=== PATIENT | male | born 1970 | race Caucasian/White ===

== ENCOUNTER 2018-04-13 06:19 | Day surgery (SDC) | payer OTHER ==
[~2018-04-13] VITALS: Ht 188 cm; Wt 111.7 kg
[~2018-04-13 06:19] MED LIST: Aspir 8181 MG PO; BUPR75 PO; CLARITIN10 MG PO; CONTRAVE ER 8-1 EACH PO; FISH1000 PO; FLUO20 PO; HYDACE5 PO; IBUP800 PO; Mobic15 MG PO; NIAC500ER PO; PARO20 PO; PRED20; WARF10 PO; WARF5 PO; Zantac150 MG PO
[2018-04-13] MEDS ORDERED: ALBU90OI (07:16)
== END 2018-04-13 10:19 | disposition home or self-care (01) ==
LOC: ORSCSDS 06:19
PROVIDERS: Orthopaedic Surgery
PROC: 0RBK4ZZ Excision of Left Shoulder Joint, Percutaneous Endoscopic Approach (ICD-10-PCS; principal; 2018-04-13 07:30)
PROC: 0PBB4ZZ Excision of Left Clavicle, Percutaneous Endoscopic Approach (ICD-10-PCS; principal; 2018-04-13 07:30)
DX: M19.012 Primary osteoarthritis, left shoulder (principal); M75.42 Impingement syndrome of left shoulder; J45.909 Unspecified asthma, uncomplicated; E78.5 Hyperlipidemia, unspecified; R03.0 Elevated blood-pressure reading, without diagnosis of hypertension; Z86.718 Personal history of other venous thrombosis and embolism; Z79.82 Long term (current) use of aspirin; Z79.899 Other long term (current) drug therapy
CPT/HCPCS: J0171; J0690; J1100; J2250; J2405; J2765; J7120

== ENCOUNTER 2021-04-17 08:07 | Day surgery (SDC) | payer OTHER ==
[~2021-04-17] VITALS: Ht 188 cm; Wt 113.1 kg
[~2021-04-17 08:07] MED LIST changes: +ALBU90OI
== END 2021-04-17 10:29 | disposition home or self-care (01) ==
LOC: ORSCSDS 08:07
DX: M77.11 Lateral epicondylitis, right elbow (principal); Z86.718 Personal history of other venous thrombosis and embolism; J45.909 Unspecified asthma, uncomplicated; E78.5 Hyperlipidemia, unspecified; Z79.82 Long term (current) use of aspirin; Z79.899 Other long term (current) drug therapy
CPT/HCPCS: A9270; J0690; J1100; J2250; J2405; J2704; J3010

== ENCOUNTER 2022-05-17 14:09 | Day surgery (SDC) | payer OTHER ==
[~2022-05-17] VITALS: Ht 188 cm; Wt 108.7 kg
[2022-05-17] MEDS ORDERED: ADDERALL 10 MG10 MG (14:22)
--- NOTE | 2022-05-17 15:26 | NUR ---
05/17/22 1526 SARAH DEL ANGEL PT WAS SWEATING MILDLY DURING PROCEDURE; GIVEN COOL COMPRESS TO HEAD. AT DC PT STATED THAT HE FELT FINE AND WAS READY TO GO HOME.
== END 2022-05-17 15:20 | disposition home or self-care (01) ==
LOC: ORSCSDS 14:09
PROVIDERS: Anesthesiology
PROC: 3E0R33Z Introduction of Anti-inflammatory into Spinal Canal, Percutaneous Approach (ICD-10-PCS; principal; 2022-05-17 15:30)
DX: M51.16 Intervertebral disc disorders with radiculopathy, lumbar region (principal); J45.909 Unspecified asthma, uncomplicated; I10 Essential (primary) hypertension; E78.00 Pure hypercholesterolemia, unspecified; Z79.82 Long term (current) use of aspirin; Z79.899 Other long term (current) drug therapy
CPT/HCPCS: J1040

== ENCOUNTER 2022-06-03 08:36 | Day surgery (SDC) | payer OTHER ==
[~2022-06-03] VITALS: Ht 188 cm; Wt 110.3 kg
[~2022-06-03 08:36] MED LIST changes: +ADDERALL 10 MG10 MG
== END 2022-06-03 10:22 | disposition home or self-care (01) ==
LOC: ORSCSDS 08:36
PROVIDERS: Anesthesiology
PROC: 3E0R3BZ Introduction of Anesthetic Agent into Spinal Canal, Percutaneous Approach (ICD-10-PCS; principal; 2022-06-03 09:45)
PROC: 3E0R33Z Introduction of Anti-inflammatory into Spinal Canal, Percutaneous Approach (ICD-10-PCS; principal; 2022-06-03 09:45)
DX: M51.36 Other intervertebral disc degeneration, lumbar region (principal); M48.061 Spinal stenosis, lumbar region without neurogenic claudication; I10 Essential (primary) hypertension; E78.00 Pure hypercholesterolemia, unspecified; J45.909 Unspecified asthma, uncomplicated; Z79.899 Other long term (current) drug therapy; Z79.82 Long term (current) use of aspirin
CPT/HCPCS: J1040; J2001; J2704; J2710

== ENCOUNTER 2023-06-08 00:06 | Emergency (ER) | payer BC ==
[~2023-06-08] VITALS: Ht 188 cm; Wt 108.9 kg
[2023-06-08 01:03] LABS: BASOPHILS ABSOLUTE AUTO 0.05 K/mm3 (0.00-0.23); BASOPHILS PERCENT AUTO 1 % (0-2); EOSINOPHILS ABSOLUTE AUTO 0.21 K/mm3 (0.00-0.68); EOSINOPHILS PERCENT AUTO 2 % (0-6); Hematocrit 44.8 % (37.0-53.0); Hemoglobin 15.5 g/dL (13.5-17.5); IMMATURE GRAN ABSOLUTE AUTO 0.02 K/mm3 (0.00-0.10); IMMATURE GRAN PERCENT AUTO 0 % (0-1); LYMPHOCYTES ABSOLUTE AUTO 3.36 K/mm3 (0.84-5.20); LYMPHOCYTES PERCENT AUTO 39 % (21-46); MONOCYTES ABSOLUTE AUTO 0.72 K/mm3 (0.16-1.47); MONOCYTES PERCENT AUTO 8 % (4-13); Mean Corpuscular HGB 29.6 pg (26.0-34.0); Mean Corpuscular HGB Conc 34.6 g/dL (31.5-36.5); Mean Corpuscular Volume 86 fL (80-100); Mean Platelet Volume 9.5 fL (9.1-12.4); NEUTROPHILS PERCENT AUTO 50 % (41-73); Platelet Count 223 K/mm3 (150-400); RDW Coefficient Variation 12.5 % (11.7-14.2); RDW Standard Deviation 38.8 fL (35.1-46.3); Red Blood Cell Count 5.24 M/mm3 (4.30-5.90); White Blood Cell Count 8.66 K/mm3 (4.00-11.30)
[2023-06-08 01:28] LABS: Albumin, Blood 3.6 g/dL (3.4-5.0); Albumin/Globulin Ratio 1.1 (0.8-1.8); Bilirubin, Total 0.4 mg/dL (0.1-1.0); Bun/Creatinine Ratio 10.3 (12.0-20.0); Creatinine, Blood 1.36 mg/dL (0.60-1.20); Globulin, Blood 3.2 g/dL (2.2-4.0); Potassium, Blood 3.8 mmol/L (3.5-5.5); Total Protein, Blood 6.8 g/dL (6.4-8.2)
[2023-06-08] MEDS ORDERED: Adderall Xr 2020 MG PO (01:42)
[2023-06-08] MEDS ORDERED: FLUC200 PO (01:43)
[2023-06-08 04:31] VITALS: BP 154/95
== END 2023-06-08 04:30 | disposition home or self-care (01) ==
LOC: ER 00:06
PROVIDERS: Student in an Organized Health Care Education/Training Program
DX: R07.89 Other chest pain (principal); Z79.82 Long term (current) use of aspirin; Z79.51 Long term (current) use of inhaled steroids; Z79.899 Other long term (current) drug therapy; Z88.2 Allergy status to sulfonamides; Z88.5 Allergy status to narcotic agent; Z88.6 Allergy status to analgesic agent; Z88.8 Allergy status to other drugs, medicaments and biological substances
CPT/HCPCS: 71046; 80053; 83690; 84484; 85025; 85379; 93005; 93010; 99285-25; A9270

== ENCOUNTER → 2023-12-13 | Outpatient (CLI) | payer BC ==
[~2023-12-13] MED LIST changes: +Adderall Xr 2020 MG PO; +FLUC200 PO
[2023-12-16 08:46] LABS: HSV 1 SUBTYPE BY PCR Not Detected; HSV 2 SUBTYPE BY PCR Not Detected; HSV SUBTYPE SOURCE L NOSTRAL
== END | disposition home or self-care (01) ==
LOC: LAB 08:02 → LAB SHORT 08:02
PROVIDERS: Nurse Practitioner
DX: J34.89 Other specified disorders of nose and nasal sinuses (principal)
CPT/HCPCS: 87529

== ENCOUNTER 2024-04-13 11:36 | Day surgery (SDC) | payer BC ==
[~2024-04-13] VITALS: Ht 188 cm; Wt 108.8 kg
[~2024-04-13 11:36] MED LIST changes: +ALBU2.5V5 INH; +DERMACINRX FOL1 EAC2 PO; +LORA10ER PO; +Lactated Ringer's 1,000 ML IV ONE; +MULVITA PO; +TRANSDERM-SCOP1 EA10 TD
[2024-04-13] MEDS ORDERED: CeFAZolin Sodium 2,000 MG VIAL ONE (11:51)
[2024-04-13] MEDS ORDERED: Lisinopril2.5 MG PO (12:04)
[2024-04-13] MEDS ORDERED: Lactated Ringer's 1,000 ML IV ONE (12:17)
[2024-04-13] MEDS ORDERED: Scopolamine Hydrobromide Patch ONE (13:11)
[2024-04-13] MEDS ORDERED: FentaNYL Citrate 50 MCG/ML 2 ML Injection ONE (13:16)
[2024-04-13] MEDS ORDERED: Midazolam HCl 1MG / ML 2ML Vial ONE (13:16)
[2024-04-13] MEDS ORDERED: Ondansetron HCl 2 MG / ML 2ML Vial ONE (13:18)
[2024-04-13] MEDS ORDERED: Dexamethasone Sod Phos 10 MG/ML 1ML VIAL ONE (13:18)
[2024-04-13] MEDS ORDERED: propofoL 20 ML IV ONE (13:18)
[2024-04-13] MEDS ORDERED: EPINEPhrine HCl 1 MG/ML 1ML Amp XX ONE (13:35)
[2024-04-13] MEDS ORDERED: Ropivacaine 0.5% HCl/Pf 5 MG/ML 20ML VIAL INJ ONE (13:35)
[2024-04-13] MEDS ORDERED: OxyCODONE 5 mg/Acetamin 325 mg TABLET ONE (14:54)
[2024-04-13 15:03] VITALS: BP 131/88
== END 2024-04-13 15:25 | disposition home or self-care (01) ==
LOC: ORSCSDS 11:36
PROVIDERS: Orthopaedic Surgery
PROC: 0LN40ZZ Release Left Upper Arm Tendon, Open Approach (ICD-10-PCS; principal; 2024-04-13 13:15)
DX: M77.12 Lateral epicondylitis, left elbow (principal); N18.9 Chronic kidney disease, unspecified; Z79.82 Long term (current) use of aspirin; Z79.899 Other long term (current) drug therapy
CPT/HCPCS: A9270; J0171; J0690; J1100; J2250; J2405; J2704; J2795; J3010; J7120

== ENCOUNTER 2024-05-22 08:18 | Day surgery (SDC) | payer BC ==
[~2024-05-22] VITALS: Ht 188 cm; Wt 111.3 kg
[~2024-05-22 08:18] MED LIST changes: +Lisinopril2.5 MG PO; +propofoL 50 ML IV ONE
[2024-05-22] MEDS ORDERED: FLUC200 (08:42)
[2024-05-22] MEDS ORDERED: Lactated Ringer's 1,000 ML IV ONE (09:11)
[2024-05-22 10:22] VITALS: BP 122/85
== END 2024-05-22 10:39 | disposition home or self-care (01) ==
LOC: ORSCSDS 08:18
PROVIDERS: Surgery
PROC: 0DJD8ZZ Inspection of Lower Intestinal Tract, Via Natural or Artificial Opening Endoscopic (ICD-10-PCS; principal; 2024-05-22 09:30)
DX: Z12.11 Encounter for screening for malignant neoplasm of colon (principal); Z86.718 Personal history of other venous thrombosis and embolism; N18.9 Chronic kidney disease, unspecified; E78.5 Hyperlipidemia, unspecified; J45.909 Unspecified asthma, uncomplicated; I12.9 Hypertensive chronic kidney disease with stage 1 through stage 4 chronic kidney disease, or unspecified chronic kidney disease; K21.9 Gastro-esophageal reflux disease without esophagitis; Z79.82 Long term (current) use of aspirin; Z79.899 Other long term (current) drug therapy
CPT/HCPCS: J2704; J7120

== ENCOUNTER 2025-05-10 07:02 | Day surgery (SDC) | payer BC ==
[~2025-05-10] VITALS: Ht 188 cm; Wt 109.3 kg
[~2025-05-10 07:02] MED LIST changes: +Bupivacaine 0.5% W/EPI 1:200000 SDV 30 ML Vial ONE; +Dexmedetomidine HCL 200 MCG / 2 ML ONE; +ESOM20 PO; +FLUC200; -Lactated Ringer's 1,000 ML IV ONE; +Lidocaine 2%-Epineph 1:200000 20 ML SDV ONE; +OMEP20ER PO; -propofoL 50 ML IV ONE
[2025-05-10] MEDS ORDERED: CeFAZolin Sodium 2,000 MG VIAL ONE (07:18)
[2025-05-10] MEDS ORDERED: ROPI.25 (07:32)
[2025-05-10] MEDS ORDERED: WEGOVY1.7 MG/0.7 (07:33)
[2025-05-10] MEDS ORDERED: ZYRTEC10 M2 (07:35)
[2025-05-10] MEDS ORDERED: TRAZ50 (07:35)
[2025-05-10] MEDS ORDERED: EPIPEN0.3 MG/0.3 (07:36)
[2025-05-10] MEDS ORDERED: FentaNYL Citrate 50 MCG/ML 2 ML Injection ONE (07:51)
[2025-05-10] MEDS ORDERED: Midazolam HCl 1MG / ML 2ML Vial ONE (07:51)
[2025-05-10] MEDS ORDERED: Dexamethasone Sod Phos 10 MG/ML 1ML VIAL ONE (07:51)
[2025-05-10] MEDS ORDERED: Ondansetron HCl 2 MG / ML 2ML Vial ONE (07:51)
[2025-05-10] MEDS ORDERED: Citric Acid/Sodium Citrate 30 ML BTL ONE (08:47)
--- NOTE | 2025-05-10 09:11 | NUR ---
05/10/25 0911 Supriya Kovacs POP BLOCK ON LEFT LEG. T/O AT 0854 START:858 END:902
--- NOTE | 2025-05-10 10:22 | NUR ---
05/10/25 1022 ESTHER CALDERA PT DENIES PAIN AND NAUSEA. DENIES BEING COLD. ROUSABLE AND ABLE TO RESPOND TO QUESTIONS BUT FALLS RIGHT BACK TO SLEEP
--- NOTE | 2025-05-10 10:31 | NUR ---
05/10/25 1031 ESTHER CALDERA PAIN 09/13. , DDEE AT BEDSIDE. PT RESTING QUIETLY IN BED.
[2025-05-10] MEDS ORDERED: HYDROcodone 5-APAP 325 TAB ONE (10:46)
[2025-05-10 11:05] VITALS: BP 133/79
== END 2025-05-10 11:20 | disposition home or self-care (01) ==
LOC: ORSCSDS 07:02
PROVIDERS: Podiatrist Foot & Ankle Surgery
PROC: 0SBG4ZZ Excision of Left Ankle Joint, Percutaneous Endoscopic Approach (ICD-10-PCS; principal; 2025-05-10 08:45)
DX: M19.072 Primary osteoarthritis, left ankle and foot (principal); M77.52 Other enthesopathy of left foot and ankle; J45.909 Unspecified asthma, uncomplicated; K21.9 Gastro-esophageal reflux disease without esophagitis; E66.9 Obesity, unspecified; Z68.30 Body mass index [BMI] 30.0-30.9, adult
CPT/HCPCS: A6253; A9270; J0166; J0690; J1100; J2250; J2405; J2704; J3010; J7120